=== PATIENT | female | born 1965 | race Caucasian/White ===

== ENCOUNTER → 2017-06-01 | Outpatient (CLI) | payer BC ==
[~2017-06-01] MED LIST: COUM1TAB17 PO; COUM2.5T17 PO; PERC5TAB12 PO
--- NOTE | 2017-06-01 08:52 | REPMRS ---
Patient History The patient states she has not had a clinical breast exam in over a year. Patient is nulliparous. Family history of ovarian cancer in maternal aunt at age 72 and ovarian cancer in maternal grandmother at age 87. Reductions of both breasts, 2006. Digital Woman Screen Mammo: June 01, 2017 - Exam #: [id number] Bilateral CC and MLO view(s) were taken. Technologist: Maryse Swann Technologist Prior study comparison: February 25, 2014, digital woman screen mammo performed at [facility]. January 09, 2012, digital woman screen mammo performed at [facility]. February 23, 2010, bilateral bilat screen digital mammo performed at [facility]. FINDINGS: There are scattered fibroglandular densities. There has been no change in the appearance of the mammogram from the prior studies. There is a mild amount of residual fibroglandular tissue which is fairly symmetric. There is no interval development of dominant mass, architectural distortion, or clustered microcalcification suggestive of malignancy. There are scattered, small, benign calcifications of doubtful clinical significance. There are bilateral benign arterial calcifications noted. Scattered lymph nodes are seen in the axillae. No significant changes when compared with prior studies. ASSESSMENT: BI-RADS/ACR category 2 mammogram. Benign finding(s). Recommendation Routine screening mammogram in 1 year (for women over age 40). This mammogram was interpreted with the aid of an FDA-approved computer-aided dectection system. A. Negative x-ray reports should not delay biopsy if a dominant or clinically suspicious mass is present. B. Four to eight percent of cancers are not identified by mammography. C. Adenosis and dense breast may obscure an underlying neoplasm. Electronically Signed By: Allen Tsai MD 06/01/17 5846
== END ==
LOC: M WHC 08:12
PROVIDERS: ATTEND Internal Medicine
DX: Z12.31 Encounter for screening mammogram for malignant neoplasm of breast (principal); Z80.41 Family history of malignant neoplasm of ovary; Z98.890 Other specified postprocedural states

== ENCOUNTER → 2019-08-12 | Outpatient (CLI) | payer BC ==
--- NOTE | 2019-08-12 09:17 | REPMRS ---
Patient History The patient states she has not had a clinical breast exam in over a year. Patient is nulliparous. Family history of ovarian cancer at age 87 in maternal grandmother, ovarian cancer at age 72 in maternal aunt. Reductions of both breasts, 2006. No Hormone Replacement Therapy Digital Woman Screen Mammo: August 12, 2019 - Exam #: [id number] Bilateral CC and MLO view(s) were taken. Technologist: Michela Palm, Technologist Prior study comparison: June 01, 2017, digital woman screen mammo performed at [facility]. February 25, 2014, digital woman screen mammo performed at [facility]. January 09, 2012, digital woman screen mammo performed at [facility]. FINDINGS: There are scattered fibroglandular densities. There has been no change in the appearance of the mammogram from the prior studies. There is a mild amount of scattered fibroglandular density which is fairly symmetric. There is no interval development of dominant mass, architectural distortion, or grouped microcalcification suggestive of malignancy. 3-D tomosynthesis shows no additional findings. Assessment: BI-RADS/ACR category 1 mammogram. Negative Mammogram. Recommendation Routine screening mammogram of both breasts in 1 year (for women over age 40). This patient's Lifetime Breast Cancer Risk is estimated at 11.5 %. This mammogram was interpreted with the aid of an FDA-approved computer-aided dectection system. Electronically Signed By: Anthony Gustafson MD 08/12/19 0916
== END ==
LOC: M WHC 06:56
PROVIDERS: ATTEND Internal Medicine
DX: Z12.31 Encounter for screening mammogram for malignant neoplasm of breast (principal)

== ENCOUNTER → 2021-04-05 | Outpatient (CLI) | payer BC ==
--- NOTE | 2021-04-05 08:30 | REPMRS ---
Patient History The patient states she has not had a clinical breast exam in over a year. Family history of ovarian cancer at age 87 in maternal grandmother, ovarian cancer at age 72 in maternal aunt. Reductions of both breasts, 2006. No Hormone Replacement Therapy Tomosynthesis is performed. Volpara breast density is a. [facility] lifetime risk of breast cancer 11.0%. Patient states no breast complaints today. Patient has signed MRS History Sheet. Digital Woman Screen Mammo: April 05, 2021 - Exam #: [id number] Bilateral CC and MLO view(s) were taken. Technologist: Ysabel Allen, Technologist Prior study comparison: August 12, 2019, bilateral digital woman screen mammo performed at [facility]. June 01, 2017, digital woman screen mammo performed at [facility]. FINDINGS: There are scattered fibroglandular densities. There has been no change in the appearance of the mammogram from the prior studies. There is a mild amount of residual fibroglandular tissue which is fairly symmetric. There is no interval development of dominant mass, architectural distortion, or clustered microcalcification suggestive of malignancy. Assessment: BI-RADS/ACR category 1 mammogram. Negative Mammogram. Recommendation Routine screening mammogram in 1 year (for women over age 40). This mammogram was interpreted with the aid of an FDA-approved computer-aided dectection system. Electronically Signed By: Devin Cardoza MD 04/05/21 0829
== END ==
LOC: M WHC 07:30
PROVIDERS: ATTEND Internal Medicine
DX: Z12.31 Encounter for screening mammogram for malignant neoplasm of breast (principal)

== ENCOUNTER → 2022-11-28 | Outpatient (CLI) | payer BC | LOC: M WHC 06:48 | PROVIDERS: ATTEND Internal Medicine | DX: Z12.31 Encounter for screening mammogram for malignant neoplasm of breast (principal) ==